=== PATIENT | female | born 1975 | race Caucasian/White ===

== ENCOUNTER 2018-04-26 18:17 | Emergency (ER) | payer OTHER ==
[2018-04-26] MEDS: IBUPROFEN 600 MG TAB PO (20:15)
== END 2018-04-26 21:49 | disposition home or self-care (01) ==
LOC: FTE 18:17
DX: S90.121A Contusion of right lesser toe(s) without damage to nail, initial encounter (principal); I10 Essential (primary) hypertension; W22.8XXA Striking against or struck by other objects, initial encounter; Y92.9 Unspecified place or not applicable
CPT/HCPCS: 73660; 99283-25

== ENCOUNTER 2018-11-29 18:26 | Emergency (ER) | payer OTHER | END 2018-11-29 21:32 | disposition home or self-care (01) | LOC: FTE 18:26 | DX: R21 Rash and other nonspecific skin eruption (principal) | CPT/HCPCS: 99283; Z7502 ==